=== PATIENT | female | born 1995 | race African-American/Black ===

== ENCOUNTER 2016-05-17 23:22 | Emergency (ER) | payer MEDICAID ==
[~2016-05-17] VITALS: Ht 170.2 cm; Wt 86.2 kg
[2016-05-17 23:35] VITALS: BP 124/62
--- NOTE | 2016-05-17 23:48 | NUR ---
PT HERE C/O BODY ACHES, COUGH, NASAL CONGESTION AND FEVER X 1 WK. ER MD EVALUATING PT AT THE MOMENT.
--- NOTE | 2016-05-17 23:48 | NUR ---
AMBULATED TO ER OF1
--- NOTE | 2016-05-17 23:48 | NUR ---
Patient being evaluated by physician.
--- NOTE | 2016-05-18 00:07 | NUR ---
MOVED TO ER BED 7
[2016-05-18 01:34] VITALS: BP 116/74
--- NOTE | 2016-05-18 01:34 | NUR ---
Patient discharged with v/s stable BY DR LANZA. Written and verbal after care instructions given and explained BY MD. PER ER MD Patient WAS alert, oriented and verbalized understanding of instructions. Ambulatory with steady gait. All questions addressed prior to discharge. ID band removed. Patient advised to follow up with PMD. Rx of AMOXICILLIN given. Patient educated on indication of medication including possible reaction and side effects. Opportunity to ask questions provided and answered.
== END 2016-05-18 01:34 | disposition home or self-care (01) ==
LOC: MED 23:22
DX: O26.891 Other specified pregnancy related conditions, first trimester (principal); J06.9 Acute upper respiratory infection, unspecified; Z3A.01 Less than 8 weeks gestation of pregnancy
CPT/HCPCS: 36415; 76801; 80053; 81002; 81025; 84702; 85025; 86900; 86901; 99285; Q0092

== ENCOUNTER 2023-06-17 16:08 | Observation (INO) | payer MEDICAID, OTHER ==
[~2023-06-17] VITALS: Ht 167.6 cm; Wt 122.5 kg
[2023-06-17 16:26] VITALS: BP 99/65; PULSE 139; RESP 19; TEMP 99.5
[2023-06-17] MEDS ORDERED: ONDANSETRON 4 MG/2 ML VIAL IVP PRN (16:50)
[2023-06-17] MEDS ORDERED: cefTRIAXone 1,000 MG VIAL ONE (16:57)
[2023-06-17] MEDS ORDERED: NACL 0.9% 1,000 ML IV SCH (17:00)
[2023-06-17] MEDS ORDERED: PRETAB PO (17:18)
[2023-06-17] MEDS: cefTRIAXone 1,000 MG in LIDOCAINE MPF 1% 2.1 ML IM SCH (18:16)
[2023-06-17] MEDS: ONDANSETRON 4 MG/2 ML VIAL IM PRN (19:27)
== END 2023-06-17 19:35 | disposition home or self-care (01) ==
LOC: MLD 16:08
PROVIDERS: ADMIT Obstetrics & Gynecology; ATTEND Obstetrics & Gynecology
DX: O26.893 Other specified pregnancy related conditions, third trimester (principal); R10.9 Unspecified abdominal pain; Z20.822 Contact with and (suspected) exposure to COVID-19; Z3A.33 33 weeks gestation of pregnancy
CPT/HCPCS: 81000; 87426; 96372; G0378; J0696; J2001; J2405; J7060